=== PATIENT | female | born 1960 | race Caucasian/White ===

== ENCOUNTER → 2017-12-03 | Outpatient (CLI) | payer OTHER ==
[~2017-12-03] MED LIST: ALEN70TA2 PO; AZIT-1 PO; CALC600T63 PO; CHOL200074 PO; FLUT1DIS29 IH; GABA-547 PO; GABA-549 PO; KET10 PO; LACT1CAP6 PO; LEVO25TA61 PO; LEVO50TA86 PO; OMEG-23 PO; OMEG-96 PO; PAN40 PO; PAR20 PO; PARO10TA78 PO; PARO10TA80 PO; PER PO; PSYL3.4P2 PO; RAN150 PO; RANI-318 PO; RIZA10TA PO; VIT-7 PO; [UNRECOGNIZED DRUG - OTHER] PO
[2017-12-03 10:41] LABS: PLATELET COUNT, AUTOMATED 302 K/uL (150-450)
--- NOTE | 2017-12-03 11:28 | RADIOLOGY IMAGING REPORT ---
FACILITY: [facility] PATIENT NAME: Aye Hutchinson : 1960 MR: [id number] V: [id number] EXAM DATE: ORDERING PHYSICIAN: LILLI ROBERTS TECHNOLOGIST: Location: [facility] Patient: Aye Hutchinson : 1960 Visit/Account:[id number] Date of Sevice: 12/03/2017 Exam type: CHEST PA AND LAT History: Mildly productive cough x2-3 weeks Comparison: None. Findings: There is no evidence of focal infiltrates, pleural effusions or pulmonary edema. No evidence of a pn eumothorax or pneumomediastinum. Cardiac silhouette is normal in size. Surgical clips present in th e right upper quadrant of the abdomen IMPRESSION: 1. No acute cardiac pulmonary process seen Report Dictated By: Arcelia Graves MD at 12/03/2017 11:24 AM Report E-Signed By: Arcelia Graves MD at 12/03/2017 11:25 AM WSN:[email or web address]
== END ==
LOC: LAB 10:19
PROVIDERS: ATTEND Nurse Practitioner Family
DX: R05 Cough (principal)
CPT/HCPCS: 36415; 71046; 82040; 82247; 82310; 82374; 82435; 82565; 82947; 84075; 84132; 84155; 84295; 84450; 84460; 84520; 85025

== ENCOUNTER → 2018-09-08 | Outpatient (CLI) | payer OTHER ==
[~2018-09-08] MED LIST changes: -ALEN70TA2 PO; +ALEN70TA46 PO; +VARI50KI IM
--- NOTE | 2018-09-08 14:25 | RADIOLOGY IMAGING REPORT ---
FACILITY: [facility] PATIENT NAME: GATO LOGAN : [id number] MR: [id number] V: [id number] EXAM DATE: [id number] ORDERING PHYSICIAN: CHELSEA PALMA TECHNOLOGIST: Shawna Espinosa PROCEDURE:BILATERAL DIGITAL SCREENING MAMMOGRAM WITH CAD ASSISTED INTERPRETATION & 3D TOMOSYNTHESIS COMPARISON:Prior mammogram 07/09/2017. INDICATIONS:SCREENING FINDINGS: Breast tissue demonstrates scattered fibroglandular tissue elements. There is no suspicious mass, calcification, or architectural distortion. DIAGNOSTIC CATEGORY 1--NEGATIVE. RECOMMENDATIONS: ROUTINE MAMMOGRAM AND CLINICAL EVALUATION. IMPRESSION: BIRADS 1: Negative. No mammographic evidence for malignancy. Dictated by: Quirino Eddy M.D. on 09/08/2018 at 12:20 Transcribed by: CORNELIUS on 09/08/2018 at 13:20 Approved by: Quirino Eddy M.D. on 09/08/2018 at 14:24 [facility]
== END ==
LOC: MAMO 01:49
PROVIDERS: ATTEND Nurse Practitioner Family
DX: Z12.31 Encounter for screening mammogram for malignant neoplasm of breast (principal)
CPT/HCPCS: 77063; 77067

== ENCOUNTER → 2018-11-20 | Outpatient (CLI) | payer OTHER ==
[~2018-11-20] MED LIST changes: +DOXY-179 PO; +TRIA15OI20 TP
[2018-11-20 11:28] LABS: PLATELET COUNT, AUTOMATED 248 K/uL (150-450)
== END ==
LOC: LAB 11:03
PROVIDERS: ATTEND Nurse Practitioner
DX: W57.XXXA Bitten or stung by nonvenomous insect and other nonvenomous arthropods, initial encounter (principal)
CPT/HCPCS: 36415; 82040; 82247; 82310; 82374; 82435; 82565; 82947; 84075; 84132; 84155; 84295; 84450; 84460; 84520; 85025; 85651; 86140; 86618

== ENCOUNTER → 2019-01-05 | Outpatient (CLI) | payer OTHER ==
[2019-01-05 09:57] LABS: PLATELET COUNT, AUTOMATED 257 K/uL (150-450)
[2019-01-05 10:43] LABS: LDL CHOLESTEROL 94 mg/dl
== END ==
LOC: LAB 09:26
PROVIDERS: ATTEND Nurse Practitioner Family
DX: Z00.00 Encounter for general adult medical examination without abnormal findings (principal); E03.9 Hypothyroidism, unspecified
CPT/HCPCS: 36415; 82040; 82247; 82310; 82374; 82435; 82465; 82565; 82947; 83718; 84075; 84132; 84155; 84295; 84443; 84450; 84460; 84478; 84520; 85025

== ENCOUNTER → 2019-01-13 | Outpatient (CLI) | payer OTHER ==
--- NOTE | 2019-01-13 15:49 | RADIOLOGY IMAGING REPORT ---
FACILITY: [facility] [place] PATIENT NAME: Aye Hutchinson : 1960 MR: [id number] V: [id number] EXAM DATE: ORDERING PHYSICIAN: CHELSEA PALMA TECHNOLOGIST: Location: [facility] [place] Patient: Aye Hutchinson : 1960 Visit/Account:[id number] Date of Sevice: 01/13/2019 KNEE 3 VIEW LEFT HISTORY: right knee pain Three-view examination of the left knee. No comparison. FINDINGS: General is diffuse osteoporosis. No acute osseous pathology. Sequela of old healed fracture involvi ng the proximal tibial metadiaphysis. Old healed fracture involving the fibular metaphysis. Both th e medial lateral joint compartments relatively well-maintained with no significant joint space narrow ing or bony productive changes evident. Patellofemoral joints relatively well-maintained. No joint effusion. IMPRESSION: 1. Osteoporosis. 2. Remote healed fractures of the proximal tibia and fibula. 3. Joint spaces relatively well-maintained with no DJD of any significance Report Dictated By: Steve Olson MD at 01/13/2019 3:41 PM Report E-Signed By: Steve Olson MD at 01/13/2019 3:44 PM WSN:[email or web address]
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
== END ==
LOC: RAD 14:37
PROVIDERS: ATTEND Nurse Practitioner Family
DX: M53.3 Sacrococcygeal disorders, not elsewhere classified (principal); M81.8 Other osteoporosis without current pathological fracture
CPT/HCPCS: 72202

== ENCOUNTER → 2019-01-15 | Outpatient (CLI) | payer OTHER | LOC: LAB 13:08 | PROVIDERS: ATTEND Nurse Practitioner Family | DX: M53.3 Sacrococcygeal disorders, not elsewhere classified (principal); M47.818 Spondylosis without myelopathy or radiculopathy, sacral and sacrococcygeal region | CPT/HCPCS: 36415; 85651; 86140; 86812 ==

== ENCOUNTER → 2019-02-13 | Outpatient (CLI) | payer OTHER ==
[~2019-02-13] MED LIST changes: +DEN60I SUBQ
== END ==
LOC: LAB 15:45
PROVIDERS: ATTEND Nurse Practitioner Family
DX: M81.0 Age-related osteoporosis without current pathological fracture (principal)
CPT/HCPCS: 36415; 82306